=== PATIENT | male | born 1975 | race Caucasian/White ===

== ENCOUNTER 2017-07-25 09:18 | Emergency (ER) | payer MEDICAID, OTHER ==
[~2017-07-25] VITALS: Ht 180.3 cm; Wt 108.9 kg
[2017-07-25] MEDS ORDERED: IBUPROFEN 600 MG TABLET PO ONE ×2 (10:00→10:38)
[2017-07-25 10:44] VITALS: BP 142/98
--- NOTE | 2017-07-25 10:44 | NUR ---
Patient discharged to home in stable condition. Written and verbal after care instructions given. Patient verbalizes understanding of instruction.
== END 2017-07-25 10:45 | disposition home or self-care (01) ==
LOC: ER 09:20
DX: S43.101A Unspecified dislocation of right acromioclavicular joint, initial encounter (principal); F31.9 Bipolar disorder, unspecified; Y95 Nosocomial condition; Z91.14 Patient's other noncompliance with medication regimen; W01.0XXA Fall on same level from slipping, tripping and stumbling without subsequent striking against object, initial encounter; Y93.89 Activity, other specified; Y92.481 Parking lot as the place of occurrence of the external cause; Y99.8 Other external cause status
CPT/HCPCS: 71045-TC; 73030-TC; A4606; Z7610